=== PATIENT | male | born 1990 | race African-American/Black ===

== ENCOUNTER 2018-07-26 20:47 | Emergency (ER) | payer SELFPAY ==
[~2018-07-26] VITALS: Ht 177.8 cm; Wt 78.0 kg
[2018-07-27 00:57] VITALS: BP 128/84
== END 2018-07-27 01:00 | disposition home or self-care (01) ==
LOC: ER 20:47
DX: S60.052A Contusion of left little finger without damage to nail, initial encounter (principal); Z98.890 Other specified postprocedural states; X58.XXXA Exposure to other specified factors, initial encounter; Y93.67 Activity, basketball; Y92.310 Basketball court as the place of occurrence of the external cause; Y99.8 Other external cause status
CPT/HCPCS: 29130; 73140; 99283